=== PATIENT | female | born 1985 | race Caucasian/White ===

== ENCOUNTER 2019-08-14 12:03 | Day surgery (SDC) | payer OTHER ==
[~2019-08-14] VITALS: Ht 157.5 cm; Wt 74.8 kg
--- NOTE | ~2019-08-14 | O ---
[facility] [place] [address] OPERATIVE REPORT Name: RIVER ESPINOSA Room #: DEP [facility]..#: [id number] Admission: 08/14/19 Attend Phys: Nasir Ramesh MD Discharge: 08/15/19 Date of : 87 Report #: [id number] THIS REPORT FOR: cc: Jassi Hall MD, Christopher B. MD Chu, Peter Y. MD ~ CC: Neto Ramesh DATE OF SERVICE: 08/14/2019 PREOPERATIVE DIAGNOSES: Cholecystitis with cholelithiasis and umbilical hernia. POSTOPERATIVE DIAGNOSES: Cholecystitis with cholelithiasis containing numerous small soft cholesterol stones and umbilical hernia. ANESTHESIA: General. SURGEON: Nasir Ramesh MD COMPLICATIONS: None. ESTIMATED BLOOD LOSS: 5 mL. PROCEDURE PERFORMED: Laparoscopic cholecystectomy with cholangiogram. Repair of umbilical hernia. DESCRIPTION OF PROCEDURE: With the patient under general anesthesia, abdomen was prepped and draped in sterile fashion. Timeout was performed. I could feel umbilical fascia defect. A 0.25% Marcaine was used to anesthetize the skin infraumbilically. A curvilinear incision was made infraumbilically. Skin was lifted off of the fascia and there is a fascia defect present. The peritoneum was quite thin. I could see internally. The 0 Vicryl suture placed on the fascia edges. The superior edge is fairly thin. An 11 mm trocar was placed directly under visualization into the fascia defect. CO2 was administered without difficulty through this. Scope was then placed through the 11 mm trocar. No harm to the underlying tissue. Two 5 mm trocars were placed in the right upper quadrant and a 5 mm trocar was placed in right epigastrium. The patient does have a small anterior fibroid measuring about a cm from the uterus. The patient was placed in the reverse Trendelenburg position, right side tilted up. Gallbladder was lifted over the liver. Common duct is barely visualized under the fatty tissue. Dissection was carried out over the cystic duct. This peritoneum and the fat was dissected from the cystic duct and cystic artery. The patient actually had very thin window from medial to lateral. This was opened up. Critical view was obtained. Cystic duct was isolated to the [facility] [address] [place] [address] OPERATIVE REPORT Name: RIVER ESPINOSA Room #: DEP [facility] M.R.#: [id number] Admission: 08/14/19 Attend Phys: Nasir Ramesh MD Discharge: 08/15/19 Date of : 87 Report #: [id number] gallbladder. A clip was placed in junction of cystic duct to the gallbladder. Opening was made in the cystic duct just proximal to the clip. Cholangiogram catheter was placed. Fluoroscopic cholangiogram was obtained. Common bile duct filled out wide. I do not see any filling defect in the common duct. Cholangiogram catheter was identified in the cystic duct, no harm to the common duct seen. Catheter was then removed. The proximal cystic duct was clipped x 2 and then divided. Cystic artery was then clipped and divided. Gallbladder was free from the liver bed without difficulty. Gallbladder was removed through the infraumbilical port. Gallbladder was opened off the field at the end of the case and contained pretty significant cholesterolosis and also floating in the bile, numerous small cholesterol stones/sludge, pretty large amount of it. Liver bed was checked, hemostasis obtained. Trocars removed. CO2 was evacuated as much as possible. The umbilical hernia fascia defect was isolated. This was clipped with 0 PDS [id number] x 2. Skin incision was closed with 5-0 PDS. Steri-Strip applied. The patient was awakened and taken to recovery room. By: 1458 1738 Nasir Ramesh MD /nt
--- NOTE | ~2019-08-14 | H ---
[facility] [place] [address] HISTORY AND PHYSICAL Name: RIVER ESPINOSA Room #: PRE [facility] M.R.#: [id number] Admission: Attend Phys: Nasir Ramesh MD Discharge: Date of : 87 Report #: [id number] THIS REPORT FOR: //name// CC: Neto Ramesh PREOPERATIVE DIAGNOSIS: Cholecystitis with cholelithiasis, form of sludge and small stones. HISTORY OF PRESENT ILLNESS: The patient is a 34-year-old who is here for treatment of right upper quadrant pain. She had attack last night and went to see Dr. Hall today. She was referred for gallbladder disease. She has been having problems for about a month probably even going back longer than that. The pain is in the right upper abdomen, radiates around to her back. The back pain on the right seems to be more intense on the front than her right upper quadrant pain. The pain makes it more difficult to breathe. It does occasionally goes to her shoulder blade. She has associated nausea. Some bloating. She is belching. History of loose stool, alternating with diarrhea. No particular food triggers it. Her symptoms have increased lately and they are lasting longer and also more constantly in pain. The patient also feels tired and worn out. The patient apparently had a CT few years ago for some abdominal issues that she had. She is not quite sure if it is the same thing. Some history of gluten intolerance. The patient has been taking quite a bit of antinausea and mild pain medication. There is family history of gallbladder disease on her father's side with grandmother and great aunt and great uncle. The patient had an ultrasound performed on 08/06/2019. Her gallbladder shows evidence of sludge and small stones. Bile duct is normal. Hemoglobin is 12.5, white count 7,300, and platelets are 253. __ 0.78. Glucose is 108. Liver function test is elevated with alkaline phosphatase of 118, SGOT 45, and SGPT 88. Normal lipase and amylase. PAST MEDICAL HISTORY: History of high blood pressure, which may be somewhat related to sleeping disorder. She is yet to have a sleep study. No other past medical history. SURGICAL HISTORY: Had a breast biopsy in each breast for a fibroadenoma and tonsillectomy. ALLERGIES: SHE IS ALLERGIC TO AUGMENTIN. MEDICATIONS: Paroxetine, lisinopril 20 mg, control and Ambien. FAMILY HISTORY: Diabetes and high blood pressure. SOCIAL HISTORY: The patient works as an executive assistant. She does [place] [address] HISTORY AND PHYSICAL Name: RIVER ESPINOSA Room #: PRE [facility] M.R.#: [id number] Admission: Attend Phys: Nasir Ramesh MD Discharge: Date of : 87 Report #: [id number] REVIEW OF SYSTEMS: Back issues, chronic nose and sinus issues. PHYSICAL EXAMINATION: GENERAL: The patient is a well-nourished female in no acute distress. HEENT: Pupils react to light. Extraocular muscles are intact. Oropharynx is clear. NECK: Soft and supple, no masses. LUNGS: Clear to auscultation. HEART: Regular rate and rhythm. Normal S1, S2. No murmur or gallop. ABDOMEN: She is tender in the right upper quadrant. No mass detected. She has a small umbilical hernia present. Nothing pushing through, but I could feel a small gap in the wall. The patient does not have any mass or ascites. No guarding, no rigidity. EXTREMITIES: No cyanosis, clubbing, edema. NEUROLOGIC: Motor and sensory exams normal. IMPRESSION: The patient is a 34-year-old with abdominal pain, which is pretty classic of gallbladder disease. When the pain is intense it actually hurts more in her back. Ultrasound is abnormal with sludge or small stones present. She has not had any fasting state. The patient is recommended to treat her gallbladder disease with laparoscopic cholecystectomy. Intraoperative cholangiogram was discussed. Risk of procedure including bleeding, infection, common bile duct injury, bile leak was discussed. The patient understands the risks and wishes to proceed. Because she is quite symptomatic, she is being put on the schedule for tomorrow. By: [id number] Nasir Ramesh MD /nt
[~2019-08-14 12:03] MED LIST: AMBIEN 5 MG TABL5 MG PO; CIPROFLOXACIN500 M1 PO; ESTARYLLA1 EACH PO; PAXIL40 MG PO; PHENERGAN 25 MG25 M1 PO; PROBIOTIC1 EAC1 PO; ZESTRIL20 MG PO; ZYRTEC10 M5 PO
--- NOTE | 2019-08-14 13:09 | EKG ---
[facility] [place] [address] ELECTROCARDIOGRAM REPORT Name: RIVER ESPINOSA Room #: 150-6 [facility] M.R.#: [id number] Admission: 08/14/19 Attend Phys: Nasir Ramesh MD Discharge: Date of : 87 Report #: [id number] THIS REPORT FOR: cc: Jassi Hall MD, Christopher B. MD Couchonnal, Luis F. MD ~ THIS REPORT FOR: //name// [facility] Test Date: 2019-08-14 Test Time: 13:05:58 Pat Name: RIVER ESPINOSA Department: Room: Gender: F [employer] Engineering Division: Michael DOYLE : 1985 Requested By: Nasir Ramesh Order Number: [id number] MD: Jaime Arias Measurements Intervals [place] Rate: 67 P: 25 [place]: 137 QRS: 12 QRSD: 93 T: 18 QT: 416 QTc: 439 Interpretive Statements Sinus rhythm No previous ECG available for comparison Electronically Signed On 08-14-2019 13:08:17 FLAT LOCKER by Jaime Arias [email or web address] <ELECTRONICALLY SIGNED> By: Jaime Arias MD 08/14/19 1308 1305 130 Jaime Arias MD /EPI
[2019-08-14 13:16] LABS: HEMATOCRIT 38.2 % (37.0-47.0); HEMOGLOBIN 12.7 gm/dL (12.0-15.0)
[2019-08-14 15:22] VITALS: BP 107/64
[2019-08-14 19:30] VITALS: BP 112/76
--- NOTE | 2019-08-14 19:31 | NUR ---
PT ARRIVED ON UNIT FROM POST OP. PT ALERT XS 4. IV FLUIDS INFUSING ORDERED. ALSO GAVE PRN PAIN MED. 4 BANDAIDS TO ABD INTACT.
[2019-08-15 03:15] VITALS: BP 109/68
--- NOTE | 2019-08-15 03:18 | NUR ---
ASSUMED CARE OF PT @1900 PT ASSESSED AT START OF SHIFT A&OX4 WITH C/O PAIN. MEDS GIVEN SEE EMAR. IV INTACT AND FLUIDS INFUISING. PT AD MARTIN TO THE BATHROOM. SCD'S IN PLACE AND 4 DRESSING INTACT IN ABDOMINAL SITES NO DRAINAGE. CALLL LIGHT IN REACH AND FAMILY AT BEDSIDE FOR THE NIGHT WILL CONT TO MONITOR.
--- NOTE | 2019-08-15 07:27 | NUR ---
PT UP WALKING THE HALLS. IV FLUIDS INFUSING ORDERED. PT WAS GIVEN PRN PAIN MED ON DENIER CONTROL OPERATOR. 4 BANDAID'S INTACT TO ABD. PT HOPES TO DISCHARGE TODAY TO HOME.
[2019-08-15 07:56] VITALS: BP 95/51
[2019-08-15] MEDS ORDERED: PERCOCET PO (13:12)
[2019-08-15 14:27] VITALS: BP 95/51
[2019-08-15 14:42] VITALS: BP 95/51
--- NOTE | 2019-08-18 15:08 | PATH ---
[facility] [address] [place] [address] PATHOLOGY RPT PROCEDURE Name: FRANCISCARIVER Room #: DEP [facility] M.R.#: [id number] Admission: 08/14/19 Date of : 87 Discharge: 08/15/19 Report #: [id number] Path Case #: [id number] [facility] Accession Number: [id number] . 01 Material submitted: . gallbladder - GALLBLADDER . 01 Clinical history: . Cholecystitis, umbilical hernia . 02 Diagnosis: Gallbladder, cholecystectomy: - Mild chronic cholecystitis. - Cholelithiasis. - Cholesterolosis. - Cholesterol polyps. (IUV:pit 08/18/2019) QTP 08/18/2019 1307 Local . 02 Electronically signed: . Nohelia Davis MD, Pathologist NPI- [id number] . 01 Gross description: . The specimen is received in formalin labeled "River Espinosa, gallbladder" and consists of a previously opened green gallbladder measuring 6.6 x 3.5 x 0.9 cm. The margin is inked black. Present within the container and gallbladder lumen are multiple yellow minute gravel-like calculi measuring 0.1 cm. The mucosa is green with extensive yellow stippling and an average wall thickness of 0.1 cm. No masses are identified. Solid Waste Disposal Manager sections are submitted in A1. ([facility]; 08/17/2019) SYU/SYU 08/17/2019 1117 Local . 02 Pathologist provided ICD-10: K80.10, K82.4 . 02 CPT . 239367 Specimen Comment: A courtesy copy of this report has been sent to [phone] Specimen Comment: Report sent to DR ZAYAS Performed at: 01 [place] [id number] [address] [id number] MD Boone Vuong MD Phone: [phone] Performed at: [address] [address] PATHOLOGY RPT PROCEDURE Name: RIVER ESPINOSA Room #: DEP [facility] M.R.#: [id number] Admission: 08/14/19 Date of : 87 Discharge: 08/15/19 Report #: [id number] Path Case #: [id number] [address] [place] [id number] MD Nohelia Davis MD Phone: [phone]
== END 2019-08-15 14:47 | disposition home or self-care (01) ==
LOC: OR 12:03 → TBA 12:48 → OR 14:29 → 4S 17:48 → OR 08-15 14:47
PROVIDERS: Surgery
DX: K80.10 Calculus of gallbladder with chronic cholecystitis without obstruction (principal); K42.9 Umbilical hernia without obstruction or gangrene; I10 Essential (primary) hypertension; F32.9 Major depressive disorder, single episode, unspecified; Z98.890 Other specified postprocedural states; Z79.899 Other long term (current) drug therapy; Z87.891 Personal history of nicotine dependence; Z88.8 Allergy status to other drugs, medicaments and biological substances
CPT/HCPCS: 50010; 50101; 50249; 50411; 50555; 50558; 51489; 53307; 53310; 55245; 55317; 56462; 56525; 56526; 62110; 62900; 70005